=== PATIENT | male | born 1980 | race Two or more races ===

== ENCOUNTER 2020-05-17 20:26 | Emergency (ER) | payer MEDICAID ==
[~2020-05-17] VITALS: Ht 185.4 cm; Wt 122.7 kg
[~2020-05-17 20:26] MED LIST: CLIN-97 PO; NAPR-1154 PO; OXYC-145 PO
[2020-05-17 20:50] VITALS: BP 154/98
[2020-05-17] MEDS ORDERED: IBUP-1984 PO (22:16)
== END 2020-05-17 22:33 | disposition home or self-care (01) ==
LOC: ER 20:26
DX: L60.0 Ingrowing nail (principal); M79.675 Pain in left toe(s); M79.89 Other specified soft tissue disorders; G89.29 Other chronic pain; F41.9 Anxiety disorder, unspecified; Z88.0 Allergy status to penicillin; Z79.2 Long term (current) use of antibiotics; Z79.899 Other long term (current) drug therapy
CPT/HCPCS: 73660; 99283

== ENCOUNTER 2024-08-26 18:32 | Emergency (ER) | payer MEDICAID ==
[~2024-08-26] VITALS: Ht 185.4 cm; Wt 133.3 kg
[2024-08-26 18:45] VITALS: TEMP 97.6
[2024-08-26 19:16] LABS: BASOPHILS % (AUTO) 1.1 % (0-1); EOSINOPHILS # (AUTO) 0.3 X10'3 (0-0.9); HEMATOCRIT 43.3 % (42.0-52.0); HEMOGLOBIN 14.1 g/dl (14.0-17.9); LYMPHOCYTES # (AUTO) 1.1 X10'3 (1.1-4.8); LYMPHOCYTES % (AUTO) 24.7 % (21-51); MEAN CORPUSCULAR HEMOGLOBIN 28.1 PG (27.0-31.0); MEAN CORPUSCULAR HGB CONC 32.5 g/dL (33.0-36.5); MEAN CORPUSCULAR VOLUME 86.4 FL (78-98); MEAN PLATELET VOLUME 8.6 FL (7.4-10.4); MONOCYTES # (AUTO) 0.7 X10'3 (0-0.9); MONOCYTES % (AUTO) 16.7 % (2-12); NEUTROPHILS # (AUTO) 2.3 X10'3 (1.8-7.7); NEUTROPHILS % (AUTO) 51.5 % (42-75); PLATELET COUNT 235 X10'3 (140-440); RED BLOOD COUNT 5.02 X10'6 (4.70-6.10); RED CELL DISTRIBUTION WIDTH 14.4 % (11.5-14.5); WHITE BLOOD COUNT 4.4 X10'3 (4.5-11.0)
[2024-08-26 19:38] LABS: ALANINE AMINOTRANSFERASE 40 U/L (12-78); ALBUMIN 3.9 G/DL (3.4-5.0); ALBUMIN/GLOBULIN RATIO 1.2 (1.1-1.5); ALKALINE PHOSPHATASE 108 IU/L (46-116); ANION GAP 9 (8-16); ASPARTATE AMINO TRANSFERASE 21 U/L (10-37); BILIRUBIN,TOTAL 0.3 MG/DL (0.1-1.0); BLOOD UREA NITROGEN 15 MG/DL (7-18); BUN/CREATININE RATIO 15.8 (10.0-20.0); CALCIUM 8.5 MG/DL (8.5-10.1); CHLORIDE 105 MMOL/L (99-107); CREATININE 0.95 MG/DL (0.60-1.10); GLUCOSE 108 MG/DL (70-104); POTASSIUM 3.9 MMOL/L (3.5-5.1); SODIUM 140 MMOL/L (135-145); TOTAL CARBON DIOXIDE 25.8 MMOL/L (24-32); TOTAL PROTEIN 7.1 G/DL (6.4-8.2); eCRCL 111 ML/MIN; eGFR 86 ML/MIN
[2024-08-26 19:48] LABS: PRO BRAIN NATRIURETIC PEPTIDE < 30 PG/ML (0-125)
[2024-08-26 19:52] LABS: PLATELET ESTIMATE NORMAL; TOTAL CELLS COUNTED 100
[2024-08-26 20:00] LABS: LIPASE < 6 U/L (16-77)
[2024-08-26] MEDS ORDERED: OMEP40CA21 PO (22:03)
[2024-08-26 22:22] VITALS: BP 138/78; PULSE 97; RESP 15; O2SAT 95
== END 2024-08-26 22:28 | disposition home or self-care (01) ==
LOC: ER 18:33
DX: R10.12 Left upper quadrant pain (principal); R10.13 Epigastric pain; F41.9 Anxiety disorder, unspecified; E03.9 Hypothyroidism, unspecified; Z88.0 Allergy status to penicillin
CPT/HCPCS: 36415; 71045; 76700; 80053; 83690; 83880; 84484; 85007; 85025; 93005; 99285